=== PATIENT | male | born 1950 | race Two or more races ===

== ENCOUNTER 2024-09-14 12:14 | Emergency (ER) | payer OTHER ==
[~2024-09-14] VITALS: Ht 170.2 cm; Wt 72.6 kg
[2024-09-14] MEDS ORDERED: BENZONATATE 100 MG CAPSULE PO ONE (13:15)
[2024-09-14 14:40] LABS: HEMATOCRIT 39.6 % (39.0-48.0); HEMOGLOBIN 13.8 g/dL (13-16.00); MEAN CELL VOLUME 90.5 fL (80.0-100.00); MEAN CORPUSCULAR HEMOGLOBIN 31.5 pg (27.00-32.0); MEAN CORPUSCULAR HGB CONC 34.8 g/dl (32.0-36.0); PLATELET COUNT 144 K/uL (150-450); RED BLOOD COUNT 4.38 M/uL (4.00-6.00); URINE APPEARANCE Clear; URINE BILIRRUBIN Negative (NEGATIVE); URINE BLOOD Negative; URINE COLOR Yellow; URINE GLUCOSE Negative (NEGATIVE); URINE KETONE Negative (NEGATIVE); URINE LEUKOCYTE Negative; URINE NITRATE Negative; URINE PROTEIN Negative (NEGATIVE); URINE UROBILINOGEN 0.2 E.U./dl
[2024-09-14 14:43] LABS: URINE BACTERIA 7.5 uL (0.0-1933); URINE EPITHELIAL CELLS 1.5 uL (0.0-38.8); URINE RBC 10.9 uL (0.0-20.8); URINE WBC 5.3 uL (0.0-23.2)
== END 2024-09-14 15:53 | disposition home or self-care (01) ==
LOC: ER 12:16
PROVIDERS: General Practice
DX: J00 Acute nasopharyngitis [common cold] (principal); Z20.822 Contact with and (suspected) exposure to COVID-19